=== PATIENT | female | born 1990 | race African-American/Black ===

== ENCOUNTER 2017-01-28 16:02 | Emergency (ER) | payer OTHER ==
[~2017-01-28] VITALS: Ht 182.9 cm; Wt 91.0 kg
[~2017-01-28 16:02] MED LIST: ALBUTEROL; FLUT1DIS3 IH; LEVO500T15 PO; P20 PO; PRO PO
[2017-01-28 18:58] VITALS: BP 118/84
== END 2017-01-28 19:00 | disposition home or self-care (01) ==
LOC: ER 17:35
DX: J45.909 Unspecified asthma, uncomplicated (principal); Z79.899 Other long term (current) drug therapy; Z76.0 Encounter for issue of repeat prescription
CPT/HCPCS: 99283